=== PATIENT | female | born 1960 | race Caucasian/White ===

== ENCOUNTER 2024-09-10 19:58 | Emergency (ER) | payer MEDICARE, MEDICAID ==
[~2024-09-10] VITALS: Ht 170.2 cm; Wt 103.7 kg
[~2024-09-10 19:58] MED LIST: NO HOME MEDS
[2024-09-10 20:29] VITALS: PULSE 98; O2SAT 96
--- NOTE | 2024-09-10 20:35 | Physician Documentation ---
History of Present Illness ~ Chief Complaint: Shortness of Breath Stated Complaint: SOB Time Seen by MD: 20:09 Primary Medical Doctor: ANJEL Source: patient, EMS, RN notes reviewed, EMS notes reviewed Mode of Arrival: EMS Exam Limitations: no limitations HPI Chief Complaint: Shortness a breath Caveat: None Independent Historians: Paramedics History of Present Illness: Patient is a 64-year-old woman who was walking on a local trail who became short of breath prior to arrival. According to the paramedics the patient's pulse ox was 94% on room air. Patient states that she has history of atrial fibrillation, possible COPD and congestive heart failure. Patient was given an albuterol neb by the medics prior to arrival. Patient is already feeling and breathing better. Paramedics state that the patient's br eath sounds were distant and tight. Review of systems: All systems were reviewed and are negative except for what is indicated in the history of present illness. Past Medical History: Possible COPD, congestive heart failure, atrial fibrillation Past Surgical History: Noncontributory Social History: No tobacco use, no alcohol use, no drug use Medications: Reviewed as documented Nursing Notes Allergies: Reviewed as documented in Nursing Notes Medication Reconciliation Allergies: Coded Allergies: No Known Allergies (Unverified , 10/25/08) Miscellaneous Medications Home Med List (No Home Medications), (Reported) Past Medical History Past Surgical History: orthopedic surgeries Alcohol Use: None Drug Use: marijuana Lives with: Mother Lives In: Home Occupation: disabled Review of Systems All Other Systems at this time: Reviewed and Negative ROS Patient denies any other acute symptoms other than above. All other systems are negative Physical Exam Vital Signs: RN Vital Signs have been reviewed: Yes, Temperature: 98.0, Source: Oral, Heart Rate: 106, Respiratory Rate: 26, BP: 110/64, Pulse Oximetry: 96, Weight: 103.700 Oxygen Flow Rate: 0 Pulse Oximetry Reflects: adequate oxygenation Physical Exam General Appearance: MILD DISTRESS, ACUTELY AND CHRONICALLY ILL-APPEARING, MORBIDLY OBESE HEENT: Normal OP, moist oral mucosa, PERRL, EOMI Neck: supple, normal ROM, trachea midline Pulmonary: RESPIRATORY DISTRESS, MILD TACHYPNEA, BREATH SOUNDS EQUAL AND CLEAR TO AUSCULTATION BUT VERY DISTANT. Cardiac: RRR, no murmur, rub or gallop, GI: nondistended, soft, nontender, normal bowel sounds, no guarding, no rebound Extremities: normal ROM, no swelling, non-tender Skin: intact, dry, warm, no rashes Neuro: AAOx3, speech is clear, no focal motor weakness Psych: normal affect, good eye contact, no apparent hallucination, normal speech Progress Results/Orders Results/Orders Orders - ELLA HUDDLESTON MD Monitor (09/10/24 20:04) Saline Lock (09/10/24 20:04) Oxygen (09/10/24 20:04) Electrocardiogram (09/10/24 20:04) Hs Troponin I W Calculations (09/10/24 22:04) Hs Troponin I W Calculations (09/10/24 23:04) Chest,Single View (09/10/24 20:06) Electrocardiogram (09/10/24 20:06) Svn Treatment (09/10/24 20:09) Furosemide Inj (Lasix Inj) (09/10/24 22:55) Potassium Chloride 40meq-2 Tab (09/10/24 22:55) Completed Orders - ELLA HUDDLESTON MD Cbc/Diff (09/10/24 20:04) Chest,Single View (09/10/24 20:06) Methylprednisolone Sod Succ (Solumedrol (09/10/24 20:10) Ipratropium/Albuterol Nebule (Ipratrop/A (09/10/24 20:10) Hs Troponin I W Calculations (09/10/24 20:43) BMP (09/10/24 20:43) PBNP (09/10/24 20:43) Medications Received in ER Medications (Trade) Dose Ordered Sig/Dina Route PRN Reason Start Time Stop Time Status Last Admin Dose Admin (SoluMEDROL 125mg inj) 125 mg ONCE ONCE IV 09/10/24 20:10 09/10/24 20:11 DC 09/10/24 20:43 125 MG (ipratrop/ albuterol 0.5-3(2.5) MG/3ml nebule) 3 ml ONCE ONCE NEB 09/10/24 20:10 09/10/24 20:11 DC 09/10/24 20:45 3 ML Vital Signs 09/10/24 09/10/24 09/10/24 09/10/24 20:00 20:29 20:30 20:37 Temp 98.0 Pulse 106 98 111 101 Resp 26 28 15 B/P (MAP) 110/64 123/64 (83) Pulse Ox 96 96 96 99 O2 Delivery Room Air* Room Air* O2 Flow Rate 0 0 0 0 FiO2 21 21 09/10/24 09/10/24 21:30 21:57 Pulse 109 Resp 27 22 B/P (MAP) 112/73 (86) Pulse Ox 96 O2 Flow Rate 0 Laboratory Tests Test 09/10/24 20:20 09/10/24 21:06 White Blood Count 9.2 Red Blood Count 5.62 H Hemoglobin 16.7 H Hematocrit 49.4 H Mean Corpuscular Volume 87.8 Mean Corpuscular Hemoglobin 29.7 Mean Corpuscular Hemoglobin Concent 33.8 Red Cell Distribution Width 15.3 H Platelet Count 217 Mean Platelet Volume 9.0 Neutrophils (%) (Auto) 60.2 Lymphocytes (%) (Auto) 28.0 Monocytes (%) (Auto) 9.7 Eosinophils (%) (Auto) 1.3 Basophils (%) (Auto) 0.8 Neutrophils # (Auto) 5.5 Lymphocytes # (Auto) 2.6 Monocytes # (Auto) 0.9 Eosinophils # (Auto) 0.1 Basophils # (Auto) 0.1 CBC Comment Chemistry Comments Sodium Level 146 H Potassium Level 4.1 Chloride Level 108 H Carbon Dioxide Level 26.5 Anion Gap 12 Blood Urea Nitrogen 31 H Creatinine 1.35 H Estimated GFR/1.73 m2 39 BUN/Creatinine Ratio 23.0 H Glucose Level 115 H Calcium Level 8.3 L Troponin I High Sensitivity 33 Pro-B-Type Natriuretic Peptide 670 H Albumin 3.0 L Medical Decision Making Additional info obtained from: old records Findings Differential diagnosis includes but is not limited to: ACUTE COPD EXACERBATION, ACUTE RESPIRATORY FAILURE, ACUTE ON CHRONIC RESPIRATORY FAILURE, ACUTE CORONARY SYNDROME, CONGESTIVE HEART FAILURE EXACERBATION, PULMONARY EMBOLUS, PNEUMONIA, DEHYDRATION EKG independent interpretation: Chest x-ray, single view, indication: Shortness of Breath Independent interpretation: I disagree with the radiology interpretation. I see mild pulmonary vascular congestion with either scarring in the fissure on the right, cardiomegaly, no pleural fluid Laboratory data independent interpretation: CBC: Unremarkable CMP: Pro BNP: 670 1st troponin: 33 Urinalysis: Emergency department course/medical decision-making: Patient presents with acute dyspnea while walking a trail. Patient isn't having any symptoms or acute coronary syndrome. Do not suspect pulmonary embolus or ACS. Patient was given DuoNeb upon arrival. Patient also given Solu-Medrol 125 mg IV. Patient's chest x-ray is concerning for some mild congestive heart failure. She has had congestive heart failure before. Although the patient is not requiring oxygen at rest she has severe dyspnea on exertion. Patient will be walked in her pulse ox will be evaluated. 10:50 p.m.: Patient re-evaluated. Patient is able to ambulate a good distance with maintaining a pulse ox of 98% on room air. Patient is thought to be having congestive heart failure exacerbation and also COPD exacerbation. Patient is hemodynamically stable and not requiring any supplemental oxygen. Patient does not meet any admission criteria. Patient is given Lasix 60 mg IV. Patient will be discharged with prednisone and antibiotics for the COPD. Patient is already on Lasix. She will follow up with the hope than with the help of her daughter. Test results and treatment plan and need for follow up and return to the ER if needed was discussed with the patient and the patient's daughter. Departure Time of Disposition: 22:54 Disposition: 01 HOME / SELF CARE / HOMELESS Impression: Primary Impression: Acute exacerbation of chronic obstructive airways disease Additional Impression: Acute exacerbation of congestive heart failure Qualified Codes: I50.9 - Heart failure, unspecified Discharge Instructions: Chronic Obstructive Pulmonary Disease Exacerbation, [id number], Heart Failure Exacerbation Additional Instructions: RETURN TO THE EMERGENCY DEPARTMENT IF YOUR SYMPTOMS WORSEN. Prescriptions Prednisone* (Prednisone*) 20 Mg Tablet 1 TAB PO Q12H for 5 Days, #10 TAB Prov: ELLA HUDDLESTON MD 09/10/24 Azithromycin (Zithromax) 250 Mg Tablet 1 TAB PO UD for 5 Days, #6 TAB 2 the first day followed by 1 for days 2-5 Prov: ELLA HUDDLESTON MD 09/10/24 Education Educated: Patient, Family Educated regarding: diagnosis, treatment Signature Scribe Signature: NO SCRIBE Attestation: NO SCRIBE ELLA HUDDLESTON MD Sep 10, 2024 20:35
[2024-09-10 20:37] VITALS: PULSE 101; RESP 15; O2SAT 99
[2024-09-10 20:37] LABS: BASOPHILS # (AUTO) 0.1 X10'3 (0-0.2); BASOPHILS % (AUTO) 0.8 % (0-1); EOSINOPHILS # (AUTO) 0.1 X10'3 (0-0.9); EOSINOPHILS % (AUTO) 1.3 % (0-6); HEMATOCRIT 49.4 % (35.0-45.0); HEMOGLOBIN 16.7 g/dl (12.0-16.0); LYMPHOCYTES # (AUTO) 2.6 X10'3 (1.1-4.8); MEAN CORPUSCULAR HEMOGLOBIN 29.7 PG (27.0-31.0); MEAN CORPUSCULAR HGB CONC 33.8 g/dL (33.0-36.5); MEAN CORPUSCULAR VOLUME 87.8 FL (78-98); MONOCYTES # (AUTO) 0.9 X10'3 (0-0.9); MONOCYTES % (AUTO) 9.7 % (2-12); NEUTROPHILS # (AUTO) 5.5 X10'3 (1.8-7.7); NEUTROPHILS % (AUTO) 60.2 % (42-75); PLATELET COUNT 217 X10'3 (140-440); RED BLOOD COUNT 5.62 X10'6 (4.20-5.60); RED CELL DISTRIBUTION WIDTH 15.3 % (11.5-14.5); WHITE BLOOD COUNT 9.2 X10'3 (4.5-11.0)
[2024-09-10] MEDS: methylPREDNISolone sod succ 125mg/2ml vial IV ONE (20:43)
[2024-09-10] MEDS: ipratropium/albuterol 3ml nebule NEB ONE (20:45)
--- NOTE | 2024-09-10 21:24 | RADIOLOGY REPORT ---
CHEST RADIOGRAPH Indication: CP Technique: Single frontal view of the chest was obtained COMPARISON: None FINDINGS: Lines and Tubes: None Lungs: Moderate diffuse increased prominence of the interstitial pulmonary markings. Right lung base atelectasis and/or scarring. Pleura: No effusion. No pneumothorax. Cardiomediastinal contours: Unremarkable Bones: Unremarkable IMPRESSION: 1. No acute disease. Moderate diffuse increased prominence of the interstitial pulmonary markings. R ight lung base atelectasis and/or scarring.
[2024-09-10 21:43] LABS: ANION GAP 12 (8-16); BLOOD UREA NITROGEN 31 MG/DL (7-18); CALCIUM 8.3 MG/DL (8.5-10.1); CHLORIDE 108 MMOL/L (99-107); CREATININE 1.35 MG/DL (0.40-0.90); GLUCOSE 115 MG/DL (70-104); PRO BRAIN NATRIURETIC PEPTIDE 670 PG/ML (0-125); SODIUM 146 MMOL/L (135-145); TOTAL CARBON DIOXIDE 26.5 MMOL/L (24-32); eCRCL 40 ML/MIN; eGFR 39 ML/MIN
[2024-09-10 21:44] LABS: POTASSIUM 4.1 MMOL/L (3.5-5.1)
[2024-09-10] MEDS: potassium Cl 20 mEq SR tablet PO ONE (22:59)
[2024-09-10] MEDS: furosemide 10 MG/1 ML 10ml inj IV ONE (22:59)
[2024-09-10] MEDS ORDERED: AZIT250T89 PO (23:00)
[2024-09-10] MEDS ORDERED: PRED20TA PO (23:00)
[2024-09-10 23:29] VITALS: BP 152/86; PULSE 108; RESP 21; TEMP 98; O2SAT 95
--- NOTE | 2024-09-11 04:24 | ELECTROCARDIOGRAPH REPORT ---
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
== END 2024-09-10 23:32 | disposition home or self-care (01) ==
LOC: ER 19:59
DX: J44.1 Chronic obstructive pulmonary disease with (acute) exacerbation (principal); I50.9 Heart failure, unspecified; I48.91 Unspecified atrial fibrillation; F12.90 Cannabis use, unspecified, uncomplicated
CPT/HCPCS: 36415; 71045; 80048; 83880; 84484; 85025; 93005; 94640; 96374; 96375; 99285; J1938; J2919; 94760

== ENCOUNTER 2025-02-07 08:57 | Inpatient (IN) | payer MEDICARE, MEDICAID ==
[~2025-02-07] VITALS: Ht 170.2 cm; Wt 111.0 kg
[2025-02-07] VITALS (18 sets, daily range): BP systolic 95–127; BP diastolic 64–80; PULSE 54–120; RESP 16–22; TEMP 97.3–98.2; O2SAT 5–98
[2025-02-07 09:20] LABS: MEAN PLATELET VOLUME 8.8 FL (7.4-10.4); RED CELL DISTRIBUTION WIDTH 15.1 % (11.5-14.5)
--- NOTE | 2025-02-07 09:33 | RADIOLOGY REPORT ---
Procedure: DI CHEST,SINGLE VIEW History: CP Comparison: DI CHEST,SINGLE VIEW on DOS: 09/10/24 Technique: Single view of the chest. Findings: Pulmonary edema. Redemonstrated the by lung scarring. No large pleural effusion. Cardiac silhouette is enlarged. Impression: 1. Pulmonary edema.
[2025-02-07 09:40] LABS: CREATININE 1.04 MG/DL (0.40-0.90); PRO BRAIN NATRIURETIC PEPTIDE 828 PG/ML (0-125); TOTAL CARBON DIOXIDE 31.1 MMOL/L (24-32); eCRCL 52 ML/MIN; eGFR 53 ML/MIN
[2025-02-07] MEDS: PERFLUTREN PROTEIN-A MICROSPHR (Optison) 0.22 MG/ML 3ML VIAL IV ONE (09:41)
[2025-02-07] MEDS: azithromycin/NS 500mg/250ml 250 ML IV ONE (09:55)
[2025-02-07] MEDS: CefTRIAXone/D5W-Rocephin 1gm 50 ML IV ONE (09:55)
[2025-02-07] MEDS: diltiazem 5mg/ml 5ml inj. IV ONE ×2 (09:56→11:51)
[2025-02-07] MEDS: furosemide 10 MG/1 ML 10ml inj IV ONE (09:57)
--- NOTE | 2025-02-07 10:10 | ELECTROCARDIOGRAPH REPORT ---
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 VIRI Conroy Measurements Intervals [place] Rate: 147 P: 0 CA: 0 QRS: 108 QRSD: 80 T: 38 QT: 307 QTc: 481 Interpretive Statements Atrial fibrillation Lateral infarct, old Anteroseptal infarct, old Electronically Signed On 02-09-2025 18:01:[address] VIRI Conroy Please click the below link to view image of tracing.
[2025-02-07 10:40] LABS: INFLUENZA TYPE A ANTIGEN RAPID NEGATIVE (Negative); INFLUENZA TYPE B ANTIGEN RAPID NEGATIVE (Negative)
[2025-02-07] MEDS: LEVALBUTEROL HCL 1.25 MG/3 ML VIAL.NEB INH ONE (10:41)
--- NOTE | 2025-02-07 11:27 | Physician Documentation ---
History of Present Illness ~ General Chief Complaint: Irregular Heartbeat Stated Complaint: ARM PAIN Time Seen by MD: 09:03 Primary Medical Doctor: ANJEL Mode of Arrival: EMS, Stretcher History of Present Illness Initial Comments This is a 64-year-old female with a past medical history of atrial fibrillation (diagnosed March 2024), chronic obstructive pulmonary disease (COPD), and possible congestive heart failure (CHF) who presented to the emergency de[facility] with complaints of shortness of breath and right arm pain since early this morning. The patient reports that the shortness of breath began around 2:00 a.m. today and has been constant throughout the day, occurring even at rest associated with orthopnea and PND. She also notes increasing bilateral leg swelling over the past few days. She initially went to refill her medications earlier today, where her doctor advised her to seek emergency evaluation for her symptoms. She also reports right arm pain, described as a dull ache, non-radiating, not associated with trauma, numbness, or weakness. She denies any chest pressure, diaphoresis, or palpitations. She has a known history of COPD and uses inhalers at home. She is not on home oxygen. She was diagnosed with atrial fibrillation earlier this year and recalls being prescribed a blood thinner but cannot remember the name. She also reports being told by her PCP that she has heart failure, but is unsure of her medications. She has 2+ pedal edema on both legs. 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 Alcohol: Denies current alcohol use. Illicit drugs: History of methamphetamine use, last use March 2024; reports sobriety since then. Review of Systems ROS Constitutional: No fever, chills, dizziness, weight gain or loss Eyes: No pain, erythema, discharge, blurring of vision ENT: No sore throat, epistaxis, tinnitus Cardiovascular: reports Shortness of breath. Chest pressure, chest discomfort, palpitations, syncope, lower extremity edema, paroxysmal nocturnal dyspnea Respiratory: Shortness of breath and cough present, No hemoptysis Gastrointestinal: Normal appetite. No nausea, vomiting, diarrhea, constipation, hematemesis, abdominal pain, bloating, melena or fresh blood Musculoskeletal: Reports edema. Integumentary: No change in skin, hair, nails. No swelling, bruising, abrasions Neurologic: No headache, neck pain, numbness or tingling of the extremities, weakness Psychiatric: No delusions, depression, loss of interest in normal activity or change in sleep pattern, hallucinations, suicidal ideations Endocrine: Reports fatigue, weakness, no polydipsia, polyuria, change in appetite, heat or cold intolerance, sweating, dry skin Hematological: No bleeding, petechiae, bruising Allergies: No asthma or urticaria Physical Exam Physical Exam Vital Signs: Temperature: 97.7, Source: Oral, Heart Rate: 115, Respiratory Rate: 13, BP: 133/94, Pulse Oximetry: 94, Weight: 111.000 Oxygen Flow Rate: 2.0 Physical Exam Awake , alert, and oriented x4, resting comfortably in the bed, in mild acute distress HEENT: Atraumatic, normocephalic, EOMI, anicteric sclera ; pink conjunctiva Neck: Trachea midline. Supple, full range of motion, no JVD Cardiac: Irregular rhythm, irregular rate with no murmurs all over the precordium. Respiratory: Equal breath sounds bilaterally, no tachypnea, no wheezing ,rub or rales, Chest wall is symmetric and without deformity. Gastrointestinal: Abdomen symmetric, non-distended, soft, non-tender, normal bowel sounds x4 quadrant, normoactive, no hepatosplenomegaly Musculoskeletal: 3+ pedal edema Neurological: Mental status exam: alert and consciousness, orientation, memory, speech - Cranial nerve test: Cranial nerves 2-12 intact - Motor system: Nutrition, Tone 3+, Power 5/5, no involuntary movements - Sensory system: Intact - Reflex testing: Biceps, triceps and knee reflexes 2+ - Cerebellar: Normal Skin: Warm and dry Progress Progress Note The patient EKG showed a rapid atrial fibrillation with a rate of 147 with a normal axis and occasional PVCs as well as nonspecific ST-T abnormalities she also has Q-waves in V1 through V3 her EKG was interpreted as an abnormal EKG and was interpreted by me at 9:06 a.m.. The patient was seen with the resident physician. I have supervised all aspects of the residents care. I have reviewed the resident's note and I agree with the note and the assessment with the plan as written. The patient presented with a rapid atrial fibrillation she was rate controlled in the emergency department also treated for COPD the patient does have a history of methamphetamine use the case was discussed with the hospitalist the patient will be admitted to the hospitalist. Prior hospitalizations were reviewed. Results/Orders Results/Orders Orders - FRITZ IBARRA MD Chest,Single View (02/07/25 08:59) Monitor (02/07/25 08:59) Saline Lock (02/07/25 08:59) Oxygen (02/07/25 08:59) Completed Orders - FRITZ IBARRA MD Chest,Single View (02/07/25 08:59) Cbc/Diff (02/07/25 08:59) BMP (02/07/25 08:59) PBNP (02/07/25 08:59) Electrocardiogram (02/07/25 08:59) Hs Troponin I W Calculations (02/07/25 08:59) Hs Troponin I W Calculations (02/07/25 10:59) Hs Troponin I W Calculations (02/07/25 11:59) Osmolality (02/07/25 09:09) TSH (02/07/25 09:09) Medications Received in ER Medications (Trade) Dose Ordered Sig/Dina Route PRN Reason Start Time Stop Time Status Last Admin Dose Admin (Lasix inj) 60 mg ONCE ONCE IV 02/07/25 09:35 02/07/25 09:37 DC 02/07/25 09:57 60 MG Ceftriaxone Sodium 50 ml @ 100 mls/hr ONCE ONCE IV 02/07/25 09:35 02/07/25 10:04 DC 02/07/25 09:55 100 MLS/HR Azithromycin 250 ml @ 250 mls/hr ONCE ONCE IV 02/07/25 09:35 02/07/25 10:34 DC 02/07/25 09:55 250 MLS/HR (Cardizem IV 5mg/ ml inj.) 15 mg ONCE ONCE IV 02/07/25 09:40 02/07/25 09:43 DC 02/07/25 09:56 15 MG (SoluMEDROL 125mg inj) 125 mg ONCE ONCE IV 02/07/25 09:45 11 09:46 DC 02/07/25 09:55 125 MG (LEVALBUTEROL 1.25mg/3ml vial.neb) 1.25 mg ONCE ONCE INH 02/07/25 10:00 02/07/25 10:01 DC 02/07/25 10:41 1.25 MG Diltiazem HCl 100 ml @ 5 mls/hr Q20H IV 02/07/25 11:15 02/07/25 13:00 DC 02/07/25 11:51 5 MLS/HR (Cardizem IV 5mg/ ml inj.) 15 mg ONCE ONCE IV 02/07/25 11:15 02/07/25 11:41 DC 02/07/25 11:51 15 MG Diltiazem HCl 100 ml @ 5 mls/hr Q20H IV 02/07/25 12:30 02/07/25 13:01 5 MLS/HR Vital Signs 02/07/25 02/07/25 02/07/25 02/07/25 09:00 09:56 10:00 10:11 Temp 97.7 Pulse 121 130 110 Resp 22 18 B/P (MAP) 181/103 158/113 144/104 (117) Pulse Ox 93 94 94 O2 Delivery Nasal Cannula* O2 Flow Rate 0 2 2.0 FiO2 28 02/07/25 02/07/25 02/07/25 02/07/25 10:43 10:46 11:04 11:51 Pulse 115 102 115 113 Resp 18 22 13 B/P (MAP) 133/94 (107) 118/63 Pulse Ox 5 91 94 O2 Delivery Nasal Cannula* Nasal Cannula* O2 Flow Rate 3 3 2.0 FiO2 32 32 02/07/25 02/07/25 11:51 12:17 Pulse 115 88 Resp 20 B/P (MAP) 118/63 120/86 (97) Pulse Ox 95 O2 Flow Rate 2.0 Laboratory Tests Test 02/07/25 09:09 02/07/25 10:08 02/07/25 11:06 02/07/25 11:45 White Blood Count 11.1 H Red Blood Count 5.60 Hemoglobin 16.1 H Hematocrit 48.6 H Mean Corpuscular Volume 86.8 Mean Corpuscular Hemoglobin 28.8 Mean Corpuscular Hemoglobin Concent 33.1 Red Cell Distribution Width 15.1 H Platelet Count 226 Mean Platelet Volume 8.8 Neutrophils (%) (Auto) 84.5 H Lymphocytes (%) (Auto) 10.6 L Monocytes (%) (Auto) 4.1 Eosinophils (%) (Auto) 0.4 Basophils (%) (Auto) 0.4 Neutrophils # (Auto) 9.4 H Lymphocytes # (Auto) 1.2 Monocytes # (Auto) 0.5 Eosinophils # (Auto) 0.0 Basophils # (Auto) 0.0 CBC Comment Sodium Level 141 Potassium Level 4.3 Chloride Level 103 Carbon Dioxide Level 31.1 Anion Gap 7 L Blood Urea Nitrogen 26 H Creatinine 1.04 H Estimated GFR/1.73 m2 53 BUN/Creatinine Ratio 25.0 H Glucose Level 140 H Osmolality 297 Calcium Level 8.9 Troponin I High Sensitivity 40 36 36 Pro-B-Type Natriuretic Peptide 828 H Albumin 3.5 Procalcitonin < 0.05 Thyroid Stimulating Hormone (TSH) 4.31 Chemistry Comments Influenza Type A Antigen Negative Influenza Type B Antigen Negative SARS-CoV-2 Antigen (Rapid) Negative Troponin I High Sens Percent Delta 10 0 Troponin I Hi Sens Absolute Change -4 0 Medical Decision Making Additional information obtaine: old records Findings 1. Acute on Chronic Heart Failure Exacerbation (likely HFrEF vs HFpEF) Symptoms: SOB at rest, orthopnea, PND, bilateral leg edema Likely due to medication noncompliance, possible arrhythmia (AFib), COPD Plan: BNP mildly elevated to 828, troponins negative, EKG shows AFib with Q-waves, chest X-ray shows pulmonary edema with a cardiac silhouette enlargement, Echocardiogram ordered IV Lasix 60 mg IV once when Strict I&O, daily weights, sodium restriction <2 g/day, fluid restriction 1.5 L/day Telemetry for rhythm monitoring Cardiology consult for optimization and outpatient follow-up setup Resume/adjust home guideline-directed medical therapy once confirmed (beta- lacy, SERGEI/ARB/ARNI, MRA) based on ejection fraction 2. Atrial Fibrillation (diagnosed Mar 2024) Lopez Vasc Score 4 Possibly contributing to CHF symptoms Plan: Continuous telemetry monitorin Rate control: Initiated 2 doses of Cardizem 15 mg IV once followed by Cardizem drip to uncontrolled heart rate Please adjust rate control therapy After echocardiogram based on EF Consider switching to digoxin or amiodarone if EF is less than 40 Anticoagulation: Obtain home med list; if uncertain, start Eliquis 5 mg b.i.d. TSH ordered 3. Possible acute exacerbation of COPD Possible cor pulmonale and secondary polycythemia No signs of sepsis, COVID and influenza negative WBC count 11.1, procalcitonin negative Initiated breathing treatment with levalbuterol Maintaining oxygen saturation above 88% Initiated 1 dose of ceftriaxone, azithromycin and methylprednisolone 125 mg Patient of 16 every 486 possibly secondary to COPD and chronic cor pulmonale 4. Right Arm Pain Nonspecific, possibly musculoskeletal or referred from cardiac origin. Plan: Consider duplex ultrasound if patient develops swelling or tenderness to rule out upper-extremity DVT 5. Hypertension Blood pressure on arrival: 185/45 Patient received Cardizem and blood pressures are currently 124/86 6. Substance Use Disorder (Methamphetamine, in remission) 7. Tobacco Use Disorder Last use Mar 2024, currently sober Monitor for stimulant-related cardiomyopathy on echocardiogram Nicotine patch and counseling on smoking cessation while inpatient UA tox ordered 8. BRENDA-prerenal most likely from cardiac cause Urine lytes ordered, follow up Creatinine 1.04 Unclear home regimen Contact [facility] for most recent prescription list Disposition Admit to telemetry/PCU for heart failure management and rhythm monitoring Cardiology consult inpatient Differential Diagnosis 1. Acute on Chronic Heart Failure Exacerbation (likely HFrEF vs HFpEF) 2. Atrial Fibrillation (diagnosed Mar 2024) 3. Possible acute exacerbation of COPD Departure Impression: Primary Impression: Atrial arrhythmia Additional Impressions: Acute exacerbation of congestive heart failure COPD exacerbation Referrals: NO PRIMARY CARE PROVIDER (PCP) Critical Care Note Total Time (mins): 30 Critical Care Note The very real possibility of a deterioration of this patient's condition required the highest level of my preparedness for sudden, emergent intervention. I provided critical care services, which included medication orders, frequent reevaluations of the patient's condition and response to treatment, ordering and reviewing test results, and discussing the case with various consultants. Exc ludes time spent performing separately billable procedures. The critical care time associated with the care of the patient was 30 minutes. Signature Scribe Signature: No scribe Attestation: Jarod Issa MD Internal Medicine Resident, PGY-2 JAROD ISSA, RES Feb 07, 2025 11:27 [facility],FRITZ Sellers MD Feb 07, 2025 15:38
[2025-02-07] MEDS: diltiazem-NS 100mg/100ml 100 ML IV SCH ×2 (11:51→13:01)
[2025-02-07] MEDS ORDERED: ondansetron/PF 4mg/2ml inj IV PRN (12:30)
[2025-02-07] MEDS ORDERED: magnesium sulf-water 4G/100mL 100 ML IV PRN (12:30)
[2025-02-07] MEDS ORDERED: magnesium Cl slow-release 64mg tablet PO PRN (12:30)
[2025-02-07] MEDS ORDERED: magnesium hydroxide 30ml (MOM) UD suspension PO PRN (12:30)
[2025-02-07] MEDS ORDERED: potassium Cl 20 mEq SR tablet PO PRN ×2 (12:30)
[2025-02-07] MEDS ORDERED: bisacodyl 10mg suppository rectal RC PRN (12:30)
[2025-02-07] MEDS ORDERED: magnesium sulf-water 2g/50mL 50 ML IV PRN (12:30)
[2025-02-07] MEDS ORDERED: potassium Cl 40MEQ/1/2NS 520ml 520 ML IV PRN (12:30)
[2025-02-07 12:55] LABS: OSMOLALITY 297 MOSM/K (280-300)
[2025-02-07] MEDS: albuterol 2.5 MG/3 ML nebule NEB SCH (15:25)
--- NOTE | 2025-02-07 19:30 | CARDIOLOGY REPORT ---
APPROVED REPORT EXAM: Comprehensive 2D, Doppler, and color-flow Echocardiogram. Patient Location: ER R 9 Blood Pressure: 130/82 mmHg Heart Rate: 115 - 150 bpm Rhythm: Atrial Fibrillation Indications Abnormal EKG Atrial Fibrillation with RVR COPD NO FREIGHT AGENT NO Previous ECHO 2D Dimensions LA Diam 5.2 cm IVSd 1.4 (0.7-1.1cm) LVDd 4.9 cm PWd 1.4 (0.7-1.1cm) IVSs 1.9 (0.8-1.2cm) LVDs 3.8 (2.5-4.0cm) PWs 1.8 (0.8-1.2cm) LVOT Diameter 1.84 (1.8-2.4cm) LVEF(%) 45.2 (>50%) Ao Asc Diam. 3.36 cm IVC 21.29 mm FS (%) 22.5 % SV 50.2 ml CO 5.3 L/min M-Mode Dimensions Left Atrium(MM) 5.63 (2.5-4.0cm) Aortic Root 3.44 (2.2-3.7cm) Aortic Cusp Exc 0.82 (1.5-2.0cm) MV EPSS 0.8 (<0.5cm) Aortic Valve AoV Peak Osmany. 300.8 cm/s AoV VTI 38.4 cm AO Peak GR. 36.2 mmHg AO Mean GR. 21 mmHg LVOT VTI 15.40 cm LVOT Peak Osmany. 104.5 cm/s RAF(VTI)/BSA 1.07 cm2/m2 RAF (VTI) 1.07 cm2 AI P 1/2 Time 432 ms AV DI 0.40 % Pulmonary Valve PAEDP 10.25 mmHg Tricuspid Valve TR P. Velocity 298 cm/s RAP ESTIMATE 10 mmHg TR Peak Gr. 36 mmHg RVSP 46 mmHg LEFT VENTRICLE Normal LV size with low normal function. Mild concentric hypertrophy. Over LVEF is 55%. RIGHT VENTRICLE Right ventricle is mildly dilated with preserved contractility. ATRIA Left atrium is severely dilated. Right atrium is mildly dilated. AORTIC VALVE Trileaflet AV is moderately stenotic. RAF is measured at 1.07 cmsq. Peak / mean gradients of 36 / 21 mmHG. Peak velocity is measured at 3.00 m/sec. MITRAL VALVE Mitral valve leaflets are mildly thickened with mild annular calcification. At least Moderate regurgitation. TRICUSPID VALVE The tricuspid valve is normal in structure with mild regurgitation. PULMONIC VALVE Pulmonic valve is grossly normal in structure with physiologic insufficiency. GREAT VESSELS The aortic root is normal in size. IVC is dilated and collapses less than 50% with inspiration. PERICARDIUM Normal pericardium. No effusion. Other Information Study Quality: Fair due to body habitus. Conclusion Over LVEF is 55%. Normal LV size with low normal function. Mild concentric hypertrophy. Right ventricle is mildly dilated with preserved contractility. Mitral valve leaflets are mildly thickened with mild annular calcification. At least Moderate regurgitation. The tricuspid valve is normal in structure with mild regurgitation. Pulmonic valve is grossly normal in structure with physiologic insufficiency. Normal pericardium. No effusion.
[2025-02-07] MEDS: K and/or MAG REPLACEMENT MC SCH (20:00)
[2025-02-07] MEDS: heparin, porcine 5000 units/ml vial SQ SCH (21:04)
--- NOTE | 2025-02-07 21:07 | HISTORY AND PHYSICAL ---
History & Physical Providers to CC ~ History of Present Illness Reason for Admit\Complaint: shortness of breaths, swelling over the ankles History of Present Illness This is a 64-year-old female with a past medical history of atrial fibrillation (diagnosed March 2024), chronic obstructive pulmonary disease (COPD), and possible congestive heart failure (CHF) who presented to the emergency department with complaints of shortness of breath and right arm pain since early this morning. The patient reports that the shortness of breath began around 2:00 a.m. today and has been constant throughout the day, occurring even at rest associated with orthopnea and PND. She also notes increasing bilateral leg swelling over the past few days. She initially went to refill her medications earlier today, where her doctor advised her to seek emergency evaluation for her symptoms.She also reports right arm pain, described as a dull ache, non- radiating, not associated with trauma, numbness, or weakness. She denies any chest pressure, diaphoresis, or palpitations.She has a known history of COPD and uses inhalers at home. She is not on home oxygen. She was diagnosed with atrial fibrillation earlier this year and recalls being prescribed a blood thinner but cannot remember the name. She also reports being told by her PCP that she has heart failure, but is unsure of her medications. Patient is smoking since 40 years, use cannabis and one week back she used meth. 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 Alcohol: Denies current alcohol use. Illicit drugs: History of methamphetamine use 1 week back ROS ROS Review of system as mentioned above in HPI rest of the review of system unremarkable Exam Vitals: Vital Signs Date Time Temp Pulse Resp B/P (MAP) Pulse Ox O2 Delivery O2 Flow Rate FiO2 02/07/25 19:34 104 18 97 Nasal Cannula* 3 32 02/07/25 17:15 110/76 (87) 02/07/25 15:35 98.2 General: General-patient not in any acute distress, alert awake oriented, chronically ill-appearing HEENT-atraumatic normocephalic, neck supple without elevated JVD, no thyromegaly or carotid bruit. No lymphadenopathy bilaterally. Eyes-no icterus or pallor seen in eyes Chest-clear to auscultation bilaterally except over lung bases, breathing nonlabored no tachypnea, no wheezing, Heart-S1-S2 normal, regular heart rate no murmur Abdomen bowel sounds positive on auscultation, soft nondistended nontender no guarding, no rigidity Skin no active skin rash, soft tissue edema present over abdomen Neurology-grossly intact, nonfocal alert awake oriented Extremity- 1 plus pedal edema able to move all 4 extremities Psychiatry - patient is not confused or agitated cooperated during physical examination Diagnostic Data Last Recorded Lab Results: 02/07/2590802/07/25908 Advance Care Planning Advanced Care plannin - 30 Minutes Additional Plan Patient is 64-year-old female with known history of CHF, COPD, atrial fibrillation, possible cor pulmonale, meth use is here in ER for shortness of breaths in right arm pain early this morning. Patient is admitted for acute COPD exacerbation, acute on chronic CHF exacerbation, with history of meth use, AFib rate with RVR. Patient was started on Cardizem drip. For CHF patient is started on IV diuretic therapy we will continue to monitor renal function closely while diuresing the patient for CHF. Patient has history of meth use patient is strongly advised to stop methamphetamine and risks explained. For COPD ordered albuterol antibiotics nebulizer and steroid treatment today. We will continue to monitor patient's labs and vitals closely . All labs, diagnostic workup, old records and ER records and outpatient records reviewed Needs physical therapy evaluation before discharge . Code status discussed with the patient patient wishes full code Time spent in discussing code status 16 minutes. We will do home medication reconciliation once updated in electronic by nursing staff or pharmacist. Further management depending on response to treatment and I will continue to follow patient in a.m. Date of Service: Feb 07, 2025 Billing Provider: CECILIA LE MD Common Visit Codes: [id number] INP/OBS CARE (HIGH) Secondary Visit Codes: [id number] CARE PLAN 30 MINUTES CECILIA LE MD Feb 07, 2025 21:07
[2025-02-07] MEDS: HYDROcodone/acetaminophen 5mg/325mg tablet PO PRN (21:29)
[2025-02-08] VITALS (38 sets, daily range): BP systolic 83–119; BP diastolic 50–108; PULSE 59–135; RESP 12–24; TEMP 97–97.8; O2SAT 91–97
[2025-02-08 05:39] LABS: MEAN PLATELET VOLUME 8.8 FL (7.4-10.4); RED CELL DISTRIBUTION WIDTH 14.8 % (11.5-14.5)
[2025-02-08 05:59] LABS: CREATININE 1.22 MG/DL (0.40-0.90); TOTAL CARBON DIOXIDE 30.6 MMOL/L (24-32); eCRCL 44 ML/MIN; eGFR 44 ML/MIN
--- NOTE | 2025-02-08 20:55 | PROGRESS NOTE ---
Daily Progress Note Providers to CC ~ Antibiotic Timeout Antibiotic Ordered?: No Subjective Patient is seen in her room she is feeling much better since yesterday. No other concerns blood pressure soft as per nursing staff . Objective Vital Signs Date Time Temp Pulse Resp B/P (MAP) Pulse Ox O2 Delivery O2 Flow Rate FiO2 02/08/25 19:46 99 20 Nasal Cannula 3.0 02/08/25 19:22 95 28 02/08/25 17:00 115/60 (78) 02/08/25 15:00 97.1 echo- Over LVEF is 55%. Normal LV size with low normal function. Mild concentric hypertrophy. Right ventricle is mildly dilated with preserved contractility. Mitral valve leaflets are mildly thickened with mild annular calcification. At least Moderate regurgitation. The tricuspid valve is normal in structure with mild regurgitation. Pulmonic valve is grossly normal in structure with physiologic insufficiency. Normal pericardium. No effusion. Result Diagram: 02/08/2552102/08/25521 General-patient not in any acute distress, alert awake oriented, chronically ill-appearing HEENT-atraumatic normocephalic, neck supple without elevated JVD, no thyromegaly or carotid bruit. No lymphadenopathy bilaterally. Eyes-no icterus or pallor seen in eyes Chest-clear to auscultation bilaterally except over lung bases, breathing nonlabored no tachypnea, no wheezing, Heart-S1-S2 normal, regular heart rate no murmur Abdomen bowel sounds positive on auscultation, soft nondistended nontender no guarding, no rigidity Skin no active skin rash, soft tissue edema present over abdomen Neurology-grossly intact, nonfocal alert awake oriented Extremity- trace pedal edema able to move all 4 extremities Psychiatry - patient is not confused or agitated cooperated during physical examination Problem\Assessment\Plan 1. Acute on Chronic Heart Failure Exacerbation (likely HFrEF vs HFpEF) Symptoms: SOB at rest, orthopnea, PND, bilateral leg edema Likely due to medication noncompliance, possible arrhythmia (AFib), COPD Plan: BNP mildly elevated to 828, troponins negative, EKG shows AFib with Q-waves, chest X-ray shows pulmonary edema with a cardiac silhouette enlargement, Echocardiogram signs of left ventricular ejection fraction 55 with mild concentric hypertrophy. IV Lasix Strict I&O, daily weights, sodium restriction <2 g/day, fluid restriction 1.5 L/day Telemetry for rhythm monitoring We will plan for Cardiology consultation if needed . Will start guideline-directed medical therapy 2. Atrial Fibrillation (diagnosed Mar 2024) Lopez Vasc Score 4 Possibly contributing to CHF symptoms on Cardizem drip to uncontrolled heart rate will start Eliquis 5 mg b.i.d. TSH ordered 3. Possible acute exacerbation of COPD Possible cor pulmonale and secondary polycythemia No signs of sepsis, COVID and influenza negative WBC count 11.1, procalcitonin negative Initiated breathing treatment with levalbuterol Maintaining oxygen saturation above 88% She received 1 dose of ceftriaxone, azithromycin and methylprednisolone 4. Right Arm Pain Nonspecific, possibly musculoskeletal or referred from cardiac origin. 5. Hypertension-stable Patient received Cardizem and blood pressures are currently soft side 6. Substance Use Disorder (Methamphetamine, in remission) 7. Tobacco Use Disorder Last use Mar 2024, currently sober Monitor for stimulant-related cardiomyopathy on echocardiogram Nicotine patch ordered UA tox ordered and pending 8. BRENDA-prerenal most likely from cardiac cause Urine lytes ordered, follow up We will continue to monitor renal function while diuresing the patient Unclear home regimen Contact [facility] for most recent prescription list patients Current condition is guarded we will continue to follow patient in a.m. Date of Service: Feb 08, 2025 Billing Provider: CECILIA LE MD Common Visit Codes: [id number] INP/OBS CARE(HIGH) CECILIA LE MD Feb 08, 2025 20:55
[2025-02-08] MEDS: methylPREDNISolone sod succ/PF 40mg inj. IV SCH (21:10)
[2025-02-09] VITALS (13 sets, daily range): BP systolic 100–141; BP diastolic 52–98; PULSE 68–127; RESP 14–22; TEMP 97–97.7; O2SAT 94–96
[2025-02-09 06:48] LABS: MEAN PLATELET VOLUME 8.9 FL (7.4-10.4); RED CELL DISTRIBUTION WIDTH 15.2 % (11.5-14.5)
[2025-02-09 07:09] LABS: CREATININE 1.24 MG/DL (0.40-0.90); TOTAL CARBON DIOXIDE 29.6 MMOL/L (24-32); eCRCL 43 ML/MIN; eGFR 43 ML/MIN
[2025-02-09] MEDS: nicotine 14mg patch - 24hr TD SCH (07:41)
[2025-02-09] MEDS ORDERED: COR3.125T PO (11:39)
[2025-02-09] MEDS ORDERED: NICO-631 TD (11:39)
[2025-02-09] MEDS ORDERED: CARSR60C PO (11:39)
[2025-02-09] MEDS ORDERED: APIX5TAB3 PO (11:39)
[2025-02-09] MEDS ORDERED: LISI2.5T14 PO (11:41)
[2025-02-09] MEDS ORDERED: FURO20TA4 PO (15:37)
--- NOTE | 2025-02-09 15:47 | DISCHARGE SUMMARY ---
Discharge Summary Providers to CC ~ Discharge Summary Admission Diagnosis: Acute exacerbation of congestive heart failure, COPD exacerbation, AFib RVR Hospital Course DATE OF ADMISSION: February 07, 2025 DATE OF DISCHARGE: February 09, 2025 CBC testing done on February 09, 2025 WBC 14.7, hemoglobin 14.8 hematocrit 44.4 platelet count 229 . Serum chemistry done on February 09, 2025 sodium 136 potassium 4.7 creatinine 1.24 GFR 43 cardiac markers unremarkable AST 41 rest of the liver enzymes unremarkable. Procalcitonin 0.05, TSH 4.31 CHEST,SINGLE VIEW-Impression: 1. Pulmonary edema. ECHOCARDIOGRAMOver LVEF is 55%. Normal LV size with low normal function. Mild concentric hypertrophy. Right ventricle is mildly dilated with preserved contractility. Mitral valve leaflets are mildly thickened with mild annular calcification. At least Moderate regurgitation. The tricuspid valve is normal in structure with mild regurgitation. Pulmonic valve is grossly normal in structure with physiologic insufficiency. Normal pericardium. No effusion. Discharge Diagnosis\\Comment: Acute on Chronic diastolic Heart Failure with Exacerbation Atrial Fibrillation (diagnosed Mar 2024) acute exacerbation of chronic COPD Possible cor pulmonale and secondary polycythemia Musculoskeletal right arm pain Hypertension-stable Substance Use Disorder (Methamphetamine use) BRENDA-prerenal most likely from cardiac cause Tobacco Use Disorder Operations\\Procedures: None Consultants: None Complications: None Condition on DC: Stable New Medications: Furosemide (Furosemide) 20 Mg Tablet 1 TAB PO DAILY for 30 Days, #30 TAB 0 Refills Lisinopril (Lisinopril) 2.5 Mg Tablet 1 TAB PO DAILY for 30 Days, #30 TAB 0 Refills Apixaban (Eliquis) 5 Mg Tablet 5 MG PO BID for 30 Days, #60 TAB Carvedilol (Carvedilol) 3.125 Mg Tablet 3.125 MG PO BID for 30 Days, #60 TAB Diltiazem Hcl (Cardizem Sr) 60 Mg Cap.sr.12h 60 MG PO Q12H for 30 Days, #60 CAP.SR Nicotine 14 MG Patch* (Habitrol 14 MG Patch*) 1 Each Patch.td24 1 PATCH TD DAILY for 30 Days, #30 PATCH Discontinued Medications: Home Med List (No Home Medications) Each Discharge Summary: Per my admitting history and physical note " This is a 64-year-old female with a past medical history of atrial fibrillation (diagnosed March 2024), chronic obstructive pulmonary disease (COPD), and possible congestive heart failure (CHF) who presented to the emergency department with complaints of shortness of breath and right arm pain since early this morning. The patient reports that the shortness of breath began around 2:00 a.m. today and has been constant throughout the day, occurring even at rest associated with orthopnea and PND. She also notes increasing bilateral leg swelling over the past few days. She initially went to refill her medications earlier today, where her doctor advised her to seek emergency evaluation for her symptoms.She also reports right arm pain, described as a dull ache, non-radiating, not associated with trauma, numbness, or weakness. She denies any chest pressure, diaphoresis, or palpitations.She has a known history of COPD and uses inhalers at home. She is not on home oxygen. She was diagnosed with atrial fibrillation earlier this year and recalls being prescribed a blood thinner but cannot remember the name. She also reports being told by her PCP that she has heart failure, but is unsure of her medications. Patient is smoking since 40 years, use cannabis and one week back she used meth. During hospitalization patient was treated for 1. Acute on Chronic Heart Failure Exacerbation (likely HFrEF vs HFpEF) Symptoms: SOB at rest, orthopnea, PND, bilateral leg edema Likely due to medication noncompliance, possible arrhythmia (AFib), COPD Plan: BNP mildly elevated to 828, troponins negative, EKG shows AFib with Q-waves, chest X-ray shows pulmonary edema with a cardiac silhouette enlargement, Echocardiogram signs of left ventricular ejection fraction 55 with mild co ncentric hypertrophy. treated with IV Lasix and discharged on PO lasix Strict I&O, daily weights, sodium restriction <2 g/day, fluid restriction 1.5 L/day Telemetry for rhythm monitoring Started guideline-directed medical therapy 2. Atrial Fibrillation (diagnosed Mar 2024) Lopez Vasc Score 4 Possibly contributing to CHF symptoms on Cardizem drip to uncontrolled heart rate startED Eliquis 5 mg b.i.d. TSH done 3. Possible acute exacerbation of COPD Possible cor pulmonale and secondary polycythemia No signs of sepsis, COVID and influenza negative WBC count 11.1, procalcitonin negative Initiated breathing treatment with levalbuterol Maintaining oxygen saturation above 88% She received 1 dose of ceftriaxone, azithromycin and methylprednisolone 4. Right Arm Pain Nonspecific, possibly musculoskeletal or referred from cardiac origin. 5. Hypertension-stable Patient received Cardizem and blood pressures monitored 6. Substance Use Disorder (Methamphetamine, in remission) 7. Tobacco Use Disorder Monitor for stimulant-related cardiomyopathy on echocardiogram Nicotine patch ordered UA tox ordered and pending 8. BRENDA-prerenal most likely from cardiac cause Urine lytes ordered, follow up We will continue to monitor renal function while diuresing the patient Patient is feeling better she has been afebrile and getting discharged home in stable condition. Patient is seen and examined on the day of discharge. All labs, diagnostic workup and discharge plan discussed with patient and family members in detail before her discharge. All questions and queries answered to the best of my professional medical knowledge. I heard patient's concerns and address appropriately. Patient was cleared by Physical therapy team for home discharge project manager involved in patient's discharge plan. Discharge instructions provided to the patient. Patient needs follow-up with primary care physician/hope van in outpatient setting in one week. Adjustment of cardiac medicationsand blood pressure medication done during hospital stay. Maintain blood pressure and heart rate log book for 2-3 weeks and follow-up with the primary care physician/ boarding specialist for congestive heart failure follow-up. Strongly advised to stop meth and risks explained. Activity as tolerated. General-patient not in any acute distress, alert awake oriented, chronically ill-appearing HEENT-atraumatic normocephalic, neck supple without elevated JVD, no thyromegaly or carotid bruit. No lymphadenopathy bilaterally. Eyes-no icterus or pallor seen in eyes Chest-clear to auscultation bilaterally except over lung bases, breathing nonlabored no tachypnea, no wheezing, Heart-S1-S2 normal, regular heart rate no murmur Abdomen bowel sounds positive on auscultation, soft nondistended nontender no guarding, no rigidity Skin no active skin rash, soft tissue edema present over abdomen Neurology-grossly intact, nonfocal alert awake oriented Extremity- trace pedal edema able to move all 4 extremities Psychiatry - patient is not confused or agitated cooperated during physical examination *Problems/Diagnosis: (1) Acute exacerbation of congestive heart failure Status: Acute (2) Acute exacerbation of chronic obstructive airways disease Status: Acute Total Time Spent on D/C: > 30 Minutes Date of Service: Feb 09, 2025 Billing Provider: CECILIA LE MD Common Visit Codes: 55069-PCS/OBS DISCH DAY >30min CECILIA LE MD Feb 09, 2025 15:42
[2025-02-09] MEDS ORDERED: diltiazem SR 60mg capsule (twice daily) PO SCH (20:00)
[2025-02-15] MEDS ORDERED: CARSR60C PO (11:18)
[2025-02-15] MEDS ORDERED: NICO-631 TD (11:18)
[2025-02-15] MEDS ORDERED: ASPI-1071 PO (11:18)
[2025-02-15] MEDS ORDERED: CARV6.253 PO (11:18)
[2025-02-15] MEDS ORDERED: FURO40TA4 PO (11:18)
[2025-02-15] MEDS ORDERED: APIX5TAB3 PO (11:18)
== END 2025-02-09 15:20 | disposition home or self-care (01) | DRG 291 ==
LOC: ER 08:58 → ED HOLD 12:37 → PCU 3S 15:19
PROVIDERS: ADMIT Internal Medicine; ATTEND Internal Medicine
DX: I11.0 Hypertensive heart disease with heart failure (principal); I50.33 Acute on chronic diastolic (congestive) heart failure; J96.21 Acute and chronic respiratory failure with hypoxia; J44.1 Chronic obstructive pulmonary disease with (acute) exacerbation; I27.81 Cor pulmonale (chronic); N17.9 Acute kidney failure, unspecified; F15.10 Other stimulant abuse, uncomplicated; Z20.822 Contact with and (suspected) exposure to COVID-19; I48.91 Unspecified atrial fibrillation; F17.210 Nicotine dependence, cigarettes, uncomplicated; I49.8 Other specified cardiac arrhythmias; D75.1 Secondary polycythemia; M79.601 Pain in right arm; Z91.148 Patient's other noncompliance with medication regimen for other reason
CPT/HCPCS: 36415; 71045; 80048; 80053; 83735; 83880; 83930; 84145; 84443; 84484; 85025; 87081; 87804; 87811; 93005; 93306; 94640; 94760; 96365; 96367; 96368; 96375; 99291; A4314; A4615; G0378; J0456; J0696; J1644; J1938; J2919; J3490; J7040; J7614